=== PATIENT | male | born 1990 | race Caucasian/White ===

== ENCOUNTER 2021-04-03 08:33 | Outpatient (CLI) | payer OTHER ==
[2021-04-03] MEDS ORDERED: GADOBUTROL 15 MMOL/15 ML VIAL ONE (09:10)
--- NOTE | 2021-04-03 11:07 | MRI Report ---
PROCEDURE: Lumbar Spine W/WO INDICATIONS: LOW BACK PAIN CONTRAST: IV CONTRAST: Gadavist ml: 9 TECHNIQUE: Noncontrast sagittal T1 spin echo and T2 fast spin echo, sagittal STIR, axial T1 and T2 fast spin ech o through the lumbar spine. In cases with scoliosis, additional coronal T2 fast spin echo may be per formed. After the administration of contrast, sagittal and axial T1 spin echo with fat saturation th rough the lumbar spine. COMPARISON: Correlation is made with prior lumbar spine MRI, 05/17/2015 FINDINGS: Image quality: Excellent. Alignment and curvature: There is minimal retrolisthesis seen at the L4-L5 level. Marrow: Marrow is of normal overall signal. No acute vertebral body compression fractures. No susp icious marrow enhancement. Spinal cord: Conus medullaris terminates at the L1 level. Visualized spinal cord demonstrates chantale l signal, without suspicious enhancement. Paraspinous soft tissues: No paravertebral masses or abnormal enhancement. This patient has transitional anatomy. For the purposes of this examination, the level with the last well-developed disc space is considered to be L5-S1. There is a transitional, rudimentary disc seen a t the S1-S2 level. This imaging scheme is chosen to remain consistent with the prior MRI report. T12-L1: Normal in appearance. L1-L2: Normal in appearance. L2-L3: Normal in appearance. L3-L4: Normal in appearance. L4-L5: The disc height is well-preserved. There is loss of disc signal seen. Mild to moderate disc bulge is seen, which is slightly eccentric to the right. Mild to moderate bilateral neural from narro wing can be seen. Minimal to mild central canal narrowing is seen. There is slight progression of deg enerative change compared to 2015. L5-S1: Mild to moderate loss of disc height and disc signal can be seen. Moderate disc bulge is see n, which is eccentric to the right. There is a central/right disc extrusion, with inferior migration of the disc material. There is an apparent sequestered disc fragment seen that measures 8 to 9 mm, as on series 401 image 9. At least moderate central canal narrowing is seen, with associated mass effec t upon the regional nerve roots. There is at least moderate bilateral neuroforaminal narrowing seen. Moderate facet hypertrophy is seen. The disc extrusion is new compared to 2015. S1-S2: There is a transitional, rudimentary disc seen at this level. IMPRESSION: Progression of degenerative change compared to 2015, including a central/right disc extrusion, with a n apparent sequestered disc fragment at the L5-S1 level. There is transitional lumbar anatomy. No abnormal enhancement can be seen. Reviewed by: Terence Abdi MD on 04/03/2021 10:06 AM AVINASH Approved by: Terence Abdi MD on 04/03/2021 10:06 AM AVINASH Station ID: [id number]
[2021-04-03] MEDS ORDERED: GADOBUTROL 15 MMOL/15 ML VIAL IVP ONE (18:03)
== END 2021-04-03 08:34 | disposition home or self-care (01) ==
LOC: DI 08:33
PROVIDERS: ATTEND Physician Assistant
DX: M54.5 Low back pain (principal); M51.27 Other intervertebral disc displacement, lumbosacral region; M51.36 Other intervertebral disc degeneration, lumbar region; M48.061 Spinal stenosis, lumbar region without neurogenic claudication; M51.37 Other intervertebral disc degeneration, lumbosacral region; M48.07 Spinal stenosis, lumbosacral region; M47.817 Spondylosis without myelopathy or radiculopathy, lumbosacral region
CPT/HCPCS: 72158; A9585